=== PATIENT | female | born 1955 | race Caucasian/White ===

== ENCOUNTER 2016-11-17 13:26 | Emergency (ER) | payer MEDICARE, OTHER ==
--- NOTE | ~2016-11-17 | CR21 ---
[facility] A Service of [facility] & [facility] RADIOLOGY TEXT RESULTS PATIENT: ARMEN DAVE LOCATION: SED : 57 UNIT #: [id number] AGE: [address]: Susie Carey SEX: F ORDER DR: [id number] [place] [id number] E MR#: [id number] Acc #: [id number] NAME: ARMEN DAVE : 1955 SEX: F STUDY DATE/TIME: 11/17/2016 13:39 UNIT: SED ROOM: STUDY DESCRIPTION: CR Ankle Min 3 Views Rt Attending Physician: Susie Carey Pa-C Ordering Physician: Susie Carey Pa-C Primary Care Physician: Imani Win M.D. MEDICAL IMAGING REPORT This report is preliminary unless electronic signature is present. EXAM Right ankle 3 views HISTORY Ankle pain and swelling and bruising after injury yesterday. Twisted ankle. FINDINGS 3 views of the right ankle demonstrates a 3 mm calcification adjacent to the tip of the lateral malleolus, from the tip of the lateral malleolus by approximately 2 mm. There is overlying soft tissue swelling and this is concerning for a small avulsion fracture. Remainder of the bone alignment is normal. No joint space narrowing. No abnormal sclerosis. Mild degenerative changes in the tibiotalar joint. Dictated by... Uday Chavez M.D. THIS IS AN ELECTRONICALLY VERIFIED REPORT Uday Chavez M.D. at 11/17/2016 10:49 PM DFL/pcl TD: 11/17/2016 15:11 JOB #: [id number] MEDICAL IMAGING REPORT Page 1 of 1
[~2016-11-17 13:26] MED LIST: ALPRAZOLAM PO; ASPIRIN325 M1 PO; BENTYL20 MG PO; BYSTOLIC5 MG PO; FLEXERIL10 MG PO; FLONASE16 GM; HYDROCHLOROTHIA25 MG PO; LEVAQUIN PO; LISINOPRIL PO; LISINOPRIL5 MG PO; LORATADINE PO; MEDROL4 MG/DOSE- PO; METHADONE HCL10 MG PO; METHADONE PO; METHADOSE10 MG PO; METHOCARBAMOL500 MG PO; NEURONTIN PO; NEURONTIN300 MG PO; OMEPRAZOLE40 MG PO; PEPCID PO; PERCOCET10 PO; PHENERGAN PO; PHENERGAN SUPP25 MG PR; PHENERGAN25 MG PO; POSTURE600 MG PO; PREVACID PO; PRINIVIL20 M1 PO; PROTONIX PO; RESTORIL15 MG PO; RESTORIL7.5 MG PO; ROBAXIN PO; ROBAXIN500 MG PO; SEROQUEL PO; TEMAZEPAM PO; TEMAZEPAM30 MG PO; XANAX0.5 M1 PO; XANAX0.5 MG PO
[2016-11-17] MEDS ORDERED: HCTZ (13:30)
== END 2016-11-17 15:53 | disposition home or self-care (01) ==
LOC: SED 13:26
DX: S82.61XA Displaced fracture of lateral malleolus of right fibula, initial encounter for closed fracture (principal); F17.200 Nicotine dependence, unspecified, uncomplicated; Z88.1 Allergy status to other antibiotic agents; I10 Essential (primary) hypertension; X50.1XXA Overexertion from prolonged static or awkward postures, initial encounter; Y92.009 Unspecified place in unspecified non-institutional (private) residence as the place of occurrence of the external cause
CPT/HCPCS: 29515; 73610; 99283

== ENCOUNTER → 2016-12-06 | Outpatient (CLI) | payer MEDICARE, OTHER ==
[~2016-12-06] MED LIST changes: +HCTZ
--- NOTE | ~2016-12-06 | CR281 ---
[facility] A Service of [facility] RADIOLOGY TEXT RESULTS PATIENT: ARMEN DAVE LOCATION: SRA : 57 UNIT #: [id number] AGE: [address]: Hermilo Liu MD SEX: F ORDER DR: [id number] [address] [address] [id number] O MR#: [id number] Acc #: [id number] NAME: ARMEN DAVE : 1955 SEX: F STUDY DATE/TIME: 12/06/2016 14:34 UNIT: SRAD ROOM: STUDY DESCRIPTION: CR Wrist Min 3 View Lt Attending Physician: Hermilo Liu M.D. Referring Physician: Hermilo Liu M.D. Ordering Physician: Hermilo Liu M.D. Primary Care Physician: Imani Win M.D. MEDICAL IMAGING REPORT This report is preliminary unless electronic signature is present. EXAM Left wrist, 12/06/2016, [facility]. HISTORY 60-year-old female left wrist pain from fall date 11/17/2016. FINDINGS Three views of the left wrist demonstrate generalized demineralization. Mild osteoarthropathy involving first carpometacarpal joint. There is no fracture identified. Intracarpal joints are otherwise maintained. Soft tissues appear unremarkable. IMPRESSION Generalized demineralization. Mild osteoarthritis involving first carpometacarpal joint. No acute fracture or dislocation. Dictated by... Nam Lin M.D. THIS IS AN ELECTRONICALLY VERIFIED REPORT Nam Lin M.D. at 12/14/2016 7:11 AM ESTEBNA/hu TD: 12/07/2016 15:42 JOB #: [id number] MEDICAL IMAGING REPORT Page 1 of 1
--- NOTE | ~2016-12-06 | CR132 ---
[facility] A Service of [facility] & [facility] RADIOLOGY TEXT RESULTS PATIENT: ARMEN DAVE LOCATION: SRA : 57 UNIT #: [id number] AGE: [address]: Hermilo Liu MD SEX: F ORDER DR: [id number] [place] [id number] O MR#: [id number] Acc #: [id number] NAME: ARMEN DAVE : 1955 SEX: F STUDY DATE/TIME: 12/06/2016 14:34 UNIT: SRAD ROOM: STUDY DESCRIPTION: CR Forearm 2 View Lt Attending Physician: Hermilo Liu M.D. Referring Physician: Hermilo Liu M.D. Ordering Physician: Hermilo Liu M.D. Primary Care Physician: Imani Win M.D. MEDICAL IMAGING REPORT This report is preliminary unless electronic signature is present. EXAM Left forearm, 12/06/2016, [facility]. HISTORY 60-year-old female pain in the left wrist and forearm following fall noted bruising. Pain with movement. Notes indicate patient fell in hospital learning to use crutches. Pain/swelling hand and feet. FINDINGS Two views of the left forearm demonstrate intact radius and ulna with no evidence for fracture. Mineralization is preserved. Soft tissues appear normal. IMPRESSION Negative left forearm. Dictated by... Nam Lin M.D. THIS IS AN ELECTRONICALLY VERIFIED REPORT Nam Lin M.D. at 12/14/2016 7:11 AM Sheng TD: 12/07/2016 15:42 JOB #: [id number] MEDICAL IMAGING REPORT Page 1 of 1
== END | disposition home or self-care (01) ==
LOC: SRAD 14:20
DX: M25.522 Pain in left elbow (principal); M19.032 Primary osteoarthritis, left wrist
CPT/HCPCS: 73090; 73110